=== PATIENT | male | born 1965 | race African-American/Black ===

== ENCOUNTER → 2021-10-19 | Day surgery (SDC) | payer OTHER ==
[2021-10-19] VITALS (12 sets, daily range): BP systolic 114–132; BP diastolic 56–93; PULSE 55–67; TEMP 98.4
[~2021-10-19] VITALS: Ht 365.8 cm; Wt 101.7 kg
[~2021-10-19] MED LIST: CELEBREX 1100 MG/CAP PO; CELEBREX 200MG200 MG PO; CELEXA 20MG20 MG/TAB PO; EPA FISH OIL1 SGL PO; FLEXERIL 1010 MG/TAB PO; FLOMAX 0.40.4 MG/CAP PO; MAGNESIUM250 M1 PO; MASON NATURAL S1 CAP PO; MICARDIS20 MG PO; MULTI VITAMINS1 TAB PO; NATURAL C500 MG PO; PHARMASSURE ZIN50 MG PO; ULTRAM 50MG TAB50 MG PO; VIAGRA 25MG TAB25 MG PO; ZOCOR 20MG20 MG PO; ZOCOR 40MG40 MG PO
[2021-10-19 13:39] LABS: HEMATOCRIT 39.6 % (42.0-52.0); HEMOGLOBIN 13.5 g/dl (13.5-18.0); MEAN CELL VOLUME 84 fl (80.0-100.0); MEAN CORPUSCULAR HEMOGLOBIN 29 pg (27-31); MEAN CORPUSCULAR HGB CONC 34 g/dl (33.0-37.0); PLATELET COUNT 177 K/mm3 (130-400); REDCELL DISTRIBUTION WIDTH-CV 13.2 % (11.5-14.5)
[2021-10-19 13:45] LABS: PROTHROMBIN TIME 11.3 SECONDS (9.7-12.8)
[2021-10-19 13:48] LABS: PARTIAL THROMBOPLASTIN TIME 31.8 SECONDS (26.0-37.0)
[2021-10-19 13:59] LABS: CREATININE, serum 1.13 mg/dL (0.72-1.25)
--- NOTE | 2021-10-19 14:22 | NUR ---
SEE MERGE FOR ALL MEDICATION ADMINISTRATION TIMES, INTRA AND POST SEDATION ASSESSMENTS
--- NOTE | 2021-10-19 17:07 | NUR ---
20 G STARTED IN LFA, 1ST ATTEMPT. DISCHARGE INSTRUCTIONS GIVEN AT 1700, PT VERBALIZED UNDERSTANDING AND SIGNED.
== END ==
LOC: COL.CAR 12:30
PROVIDERS: Internal Medicine Cardiovascular Disease
DX: R07.89 Other chest pain (principal); I10 Essential (primary) hypertension; E78.5 Hyperlipidemia, unspecified; Z79.899 Other long term (current) drug therapy; Z80.9 Family history of malignant neoplasm, unspecified
CPT/HCPCS: J1644; J2250; J3010; J7030; Q9967